=== PATIENT | male | born 1940 | race Caucasian/White ===

== ENCOUNTER 2018-02-25 22:03 | Inpatient (IN) | payer OTHER, MEDICARE ==
[~2018-02-25] VITALS: Ht 162.6 cm; Wt 136.5 kg
[~2018-02-25 22:03] MED LIST: ATOR10; Aspir 8181 MG; CHOL10002; CYAN1000I; CYCL10; FERR325; FOLI1; Fruity C250 MG; HYDACE10B; INS70/30I; METO50; OMEP20ER; POTCIT10; TAMS.4ER
[2018-02-25] MEDS ORDERED: ALBU90OI INH (22:37)
[2018-02-25] MEDS ORDERED: Vitamin C100 M1 PO (22:38)
[2018-02-25] MEDS ORDERED: ASPI81CH PO (22:38)
[2018-02-25] MEDS ORDERED: CAL-MAG COMPLE1 EACH PO (22:39)
[2018-02-25] MEDS ORDERED: CHOL10002 PO (22:40)
[2018-02-25] MEDS ORDERED: CYAN1000I IM (22:41)
[2018-02-25] MEDS ORDERED: CYCL10 PO (22:41)
[2018-02-25] MEDS ORDERED: FERSU90EL PO (22:42)
[2018-02-25] MEDS ORDERED: FOLI1 PO (22:42)
[2018-02-25] MEDS ORDERED: FURO40 PO (22:43)
[2018-02-25] MEDS ORDERED: METO50ER PO (22:44)
[2018-02-25] MEDS ORDERED: Prinivil10 MG PO (22:44)
[2018-02-25] MEDS ORDERED: STRIVERDI RESPIM4 GM INH (22:45)
[2018-02-25] MEDS ORDERED: Omeprazole20 M1 PO (22:46)
[2018-02-25] MEDS ORDERED: POTCIT10 PO (22:46)
[2018-02-25] MEDS ORDERED: ROSU10TA PO (22:47)
[2018-02-25] MEDS ORDERED: TAMS.4ER PO (22:47)
[2018-02-26 05:19] LABS: Anion Gap 8 mmol/L (6-16); Blood Urea Nitrogen 21 mg/dL (8-24); Bun/Creatinine Ratio 18.9 (12.0-20.0); CO2, Blood 27 mmol/L (21-32); Calcium, Blood 8.4 mg/dL (8.5-10.1); Chloride, Blood 100 mmol/L (98-108); Creatinine, Blood 1.11 mg/dL (0.60-1.20); Glomerular Filtration Rate >60 (60-); Glucose, Blood 148 mg/dL (70-99); Potassium, Blood 4.4 mmol/L (3.5-5.5); Sodium, Blood 135 mmol/L (136-145); Troponin I <0.015 ng/mL (0.000-0.040)
[2018-02-27 05:57] LABS: Anion Gap 12 mmol/L (6-16); Blood Urea Nitrogen 24 mg/dL (8-24); Bun/Creatinine Ratio 20.7 (12.0-20.0); CO2, Blood 25 mmol/L (21-32); Calcium, Blood 8.1 mg/dL (8.5-10.1); Chloride, Blood 103 mmol/L (98-108); Creatinine, Blood 1.16 mg/dL (0.60-1.20); Glomerular Filtration Rate >60 (60-); Glucose, Blood 231 mg/dL (70-99); Magnesium, Blood 1.8 mg/dL (1.6-2.4); Potassium, Blood 4.4 mmol/L (3.5-5.5); Sodium, Blood 140 mmol/L (136-145)
== END 2018-02-28 15:11 | disposition home or self-care (01) | DRG 355 ==
LOC: ER 22:03 → SURS 22:04 → MEDS 22:04 → ER 22:04 → MEDS 02-26 00:14 → SURS 02-26 14:32 → MEDS 02-26 14:32 → SURS 02-26 14:32
PROVIDERS: Internal Medicine; Internal Medicine Cardiovascular Disease; Surgery
PROC: 0WUF0JZ Supplement Abdominal Wall with Synthetic Substitute, Open Approach (ICD-10-PCS; principal; 2018-02-26 11:15)
DX: K43.6 Other and unspecified ventral hernia with obstruction, without gangrene (principal); I25.10 Atherosclerotic heart disease of native coronary artery without angina pectoris; J44.9 Chronic obstructive pulmonary disease, unspecified; E11.9 Type 2 diabetes mellitus without complications; I10 Essential (primary) hypertension; D69.6 Thrombocytopenia, unspecified; Z90.49 Acquired absence of other specified parts of digestive tract; E78.5 Hyperlipidemia, unspecified; D64.9 Anemia, unspecified; M81.0 Age-related osteoporosis without current pathological fracture; L40.9 Psoriasis, unspecified; Z87.891 Personal history of nicotine dependence; Z79.82 Long term (current) use of aspirin; Z79.4 Long term (current) use of insulin; Z79.51 Long term (current) use of inhaled steroids; Z79.899 Other long term (current) drug therapy; E66.01 Morbid (severe) obesity due to excess calories; Z85.828 Personal history of other malignant neoplasm of skin; Z85.51 Personal history of malignant neoplasm of bladder; K74.60 Unspecified cirrhosis of liver
CPT/HCPCS: 36415; 80048; 82947; 83735; 84484; 93005; 93010; 93306; 94760; 96361; 96374; 96375; 96376; 99285; C1781; J0295; J1100; J1650; J1815; J2250; J2370; J2405; J2710; J3010; J7030; J7120

== ENCOUNTER 2021-04-30 08:24 | Emergency (ER) | payer OTHER ==
[~2021-04-30] VITALS: Ht 167.6 cm; Wt 122.5 kg
[~2021-04-30 08:24] MED LIST changes: +ALBU90OI INH; +ASPI81CH PO; +CAL-MAG COMPLE1 EACH PO; +CHOL10002 PO; +CYAN1000I IM; +CYCL10 PO; +FERSU90EL PO; +FOLI1 PO; +FURO40 PO; +METO50ER PO; +Omeprazole20 M1 PO; +POTCIT10 PO; +Prinivil10 MG PO; +ROSU10TA PO; +STRIVERDI RESPIM4 GM INH; +TAMS.4ER PO; +Vitamin C100 M1 PO
== END 2021-04-30 10:15 | disposition home or self-care (01) ==
LOC: ER 08:24
DX: T38.3X1A Poisoning by insulin and oral hypoglycemic [antidiabetic] drugs, accidental (unintentional), initial encounter (principal); E11.9 Type 2 diabetes mellitus without complications; J44.9 Chronic obstructive pulmonary disease, unspecified; I10 Essential (primary) hypertension; Z79.4 Long term (current) use of insulin; Z88.2 Allergy status to sulfonamides; Z88.0 Allergy status to penicillin; Z79.82 Long term (current) use of aspirin; Z87.891 Personal history of nicotine dependence
CPT/HCPCS: 82947; 99284